=== PATIENT | female | born 1935 | race Caucasian/White ===

== ENCOUNTER 2024-11-08 12:45 | Emergency (ER) | payer MEDICARE | END 2024-11-08 14:55 | disposition home or self-care (01) | LOC: JD.ED 12:45 | DX: S09.90XA Unspecified injury of head, initial encounter (principal); Z79.899 Other long term (current) drug therapy; W01.198A Fall on same level from slipping, tripping and stumbling with subsequent striking against other object, initial encounter; Y93.01 Activity, walking, marching and hiking | CPT/HCPCS: 70450; 70450-26; 99283 ==

== ENCOUNTER 2025-08-30 21:13 | Emergency (ER) | payer MEDICARE, MEDICAID ==
[2025-08-30] MEDS: Acetaminophen/HYDROcodone 325-5 MG Tab PO ONE (21:37)
[2025-08-30] MEDS: Ondansetron 4 MG Tab.DIS PO STA (21:39)
== END 2025-08-31 01:00 | disposition home or self-care (01) ==
LOC: JD.ED 21:13
DX: S42.211A Unspecified displaced fracture of surgical neck of right humerus, initial encounter for closed fracture (principal); Z79.899 Other long term (current) drug therapy; W18.30XA Fall on same level, unspecified, initial encounter
CPT/HCPCS: 73030; 99284; A9270